=== PATIENT | male | born 1970 | race Caucasian/White ===

== ENCOUNTER → 2021-06-30 | Outpatient (CLI) | payer OTHER | LOC: M.ULTRA 10:49 | PROVIDERS: ATTEND Family Medicine | DX: M79.661 Pain in right lower leg (principal) ==

== ENCOUNTER → 2021-07-21 | Outpatient (CLI) | payer OTHER | LOC: M.MRI 08:30 | PROVIDERS: ATTEND Family Medicine | DX: S82.401A Unspecified fracture of shaft of right fibula, initial encounter for closed fracture (principal); M79.661 Pain in right lower leg; X58.XXXA Exposure to other specified factors, initial encounter; Y92.89 Other specified places as the place of occurrence of the external cause; Y93.89 Activity, other specified; Y99.8 Other external cause status ==